=== PATIENT | female | born 1960 | race African-American/Black ===

== ENCOUNTER 2021-07-19 09:18 | Emergency (ER) | payer OTHER ==
[2021-07-19 09:43] VITALS: BP 163/93; PULSE 100; TEMP 97; BMI 22.4
== END 2021-07-19 10:01 | disposition home or self-care (01) ==
LOC: JER 09:18 → JERFT 09:18
DX: K08.89 Other specified disorders of teeth and supporting structures (principal)
CPT/HCPCS: 99283-25

== ENCOUNTER 2021-12-13 01:38 | Emergency (ER) | payer OTHER ==
[2021-12-13 01:51] VITALS: BMI 23.3
[2021-12-13] MEDS ORDERED: IBUPROFEN 400 MG TABLET (FP) PO ONE ×2 (02:16→02:33)
[2021-12-13 04:31] VITALS: BP 143/95; PULSE 76; TEMP 97.8
== END 2021-12-13 04:33 | disposition home or self-care (01) ==
LOC: JER 01:38
DX: R07.89 Other chest pain (principal)
CPT/HCPCS: 71046-TC-FY; 99283-25

== ENCOUNTER 2022-08-18 19:25 | Inpatient (IN) | payer OTHER ==
[2022-08-18 19:53] VITALS: BMI 24.3
[2022-08-18] MEDS ORDERED: AMPICILLIN NA/SULBACTAM NA 3 GM in SODIUM CHLORIDE 100 ML IVPB ONE (20:39)
[2022-08-18 21:59] LABS: BASO % 1.1 % (0-2.0); EOS % 0.8 % (0-4.5); HEMATOCRIT 33.8 % (32.4-45.2); HEMOGLOBIN 10.8 GM/dL (10.7-15.3); LYMPH % 42.5 % (8-40); MCH 26.7 pg (25.7-33.7); MCHC 31.9 g/dl (32.0-36.0); MEAN CELL VOLUME 83.7 fl (80-96); MEAN PLT VOLUME 7.6 fl (7.5-11.1); MONO % 4.9 % (3.8-10.2); NEUT % 50.7 % (42.8-82.8); PLATELET COUNT 371 10^3/uL (134-434); RBC 4.04 M/mm3 (3.60-5.2); RDW 16.1 % (11.6-15.6); WHITE BLOOD COUNT 9.4 K/mm3 (4.0-10.0)
[2022-08-18 22:18] LABS: CALCIUM 9.4 mg/dL (8.5-10.1)
[2022-08-18 22:19] LABS: BLOOD UREA NITROGEN 15.5 mg/dL (7-18)
[2022-08-18 22:22] LABS: CREATININE 1.9 mg/dL (0.55-1.3)
[2022-08-19] MEDS ORDERED: LACTATED RINGERS SOLUTION 1,000 ML/1,000 ML INFUS.BAG IV SCH (02:00)
[2022-08-19] MEDS: AMPICILLIN NA/SULBACTAM NA 3 GM in SODIUM CHLORIDE 100 ML IVPB SCH ×2 (02:59→09:48)
[2022-08-19] MEDS ORDERED: traZODone HCL 50 MG TABLET (FP) PO ONE (03:52)
[2022-08-19] MEDS ORDERED: HEPARIN NA (PORCINE) 5,000 UNITS/ML 1ML VIAL SQ SCH (06:00)
[2022-08-19 08:26] LABS: BASO % 0.6 % (0-2.0); EOS % 1.3 % (0-4.5); HEMATOCRIT 32.1 % (32.4-45.2); HEMOGLOBIN 10.6 GM/dL (10.7-15.3); LYMPH % 46.2 % (8-40); MCH 27.6 pg (25.7-33.7); MCHC 32.9 g/dl (32.0-36.0); MEAN PLT VOLUME 7.7 fl (7.5-11.1); MONO % 6.4 % (3.8-10.2); NEUT % 45.5 % (42.8-82.8); PLATELET COUNT 334 10^3/uL (134-434); RBC 3.83 M/mm3 (3.60-5.2); WHITE BLOOD COUNT 8.4 K/mm3 (4.0-10.0)
[2022-08-19 08:54] LABS: BLOOD UREA NITROGEN 16.3 mg/dL (7-18); CALCIUM 9.2 mg/dL (8.5-10.1); MAGNESIUM 2.4 mg/dL (1.8-2.4)
[2022-08-19 08:57] LABS: CREATININE 1.6 mg/dL (0.55-1.3); PHOSPHOROUS 3.6 mg/dL (2.5-4.9)
[2022-08-19 08:59] LABS: BILIRUBIN,TOTAL 0.3 mg/dL (0.2-1); TOT PROT 7.2 g/dl (6.4-8.2)
[2022-08-19 12:21] VITALS: BP 135/78; PULSE 79; RESP 18; TEMP 98.9
[2022-08-19] MEDS ORDERED: AMOX TR/POT CLAV 875MG/125MG TABLETS (FP) PO SCH (17:30)
[2022-08-19] MEDS ORDERED: MELATONIN 5 MG TABLETS PO SCH (22:00)
== END 2022-08-19 13:18 | disposition home or self-care (01) | DRG 351 ==
LOC: JERFT 19:25 → JERBED 08-19 01:31 → J7W 08-19 02:40
PROVIDERS: ADMIT Internal Medicine; ATTEND Nurse Practitioner Acute Care
DX: S89.91XA Unspecified injury of right lower leg, initial encounter (principal); I10 Essential (primary) hypertension; F41.8 Other specified anxiety disorders; L08.9 Local infection of the skin and subcutaneous tissue, unspecified; W55.01XA Bitten by cat, initial encounter; Y93.9 Activity, unspecified; Y92.89 Other specified places as the place of occurrence of the external cause; Y99.9 Unspecified external cause status
CPT/HCPCS: 36415; 73700-TC-RT; 80048; 80053; 83735; 84100; 85025; 86140; 87040; 87070; 87205; 93005; 93010; 99285-25; C9803-CS; J1644; U0003; U0005